=== PATIENT | female | born 1990 | race Caucasian/White ===

== ENCOUNTER 2018-11-28 07:04 | Observation (INO) | payer OTHER ==
[2018-11-28] MEDS ORDERED: Misoprostol 25 MCG (1/4 of 100 MCG) Tab ONE (07:57)
[2018-11-28] MEDS ORDERED: Acetaminophen 325 MG Tab PO PRN ×2 (08:13→21:58)
--- NOTE | 2018-11-28 08:28 | PCM.LDHP ---
L&D History of Present Illness - General Date of Service: 11/28/18 Admit Problem/Dx: Patient Status Order with Admit Dx/Problem 11/28/18 08:13 Patient Status [ADT] Routine Admission Diagnosis/Problem Admission Diagnosis/Problem demise, greater than 22 weeks, antepartum Source of Information: Patient History Limitations: Reports: No Limitations - History of Present Illness Introduction:: Clementine Khoury is a 27 year old at 32 weeks 2 days (L[place]ZARO 01/21/2019) by LMP consistent with 11 week ultrasound who presents for induction of labor in the setting of intrauterine demise diagnosed in the office yesterday, 2018, by ultrasound with no movements noted, no cardiac activity and no breathing. At that time she noted that she had had a decreased amount of activity from the baby but thought that she was feeling movements about once per day. She denies any contractions or cramping but has had some pelvic pressure. She denies any leaking of fluid or vaginal bleeding. Present Illness Comments:: Clementine Khoury is a 27 year old at 32 weeks 2 days (L[place]ZARO 01/21/2019) by LMP consistent with 11 week ultrasound who presents for induction of labor in the setting of intrauterine demise diagnosed on 11/27/2018 in the clinic. She has had routine care with Dr. Adams starting at 11 weeks gestational age. Review of her labs are overall normal with a positive blood type and negative antibody screen. Her hematocrit was 40.7 with hemoglobin of 13.5 and platelets of 326 on 07/02/2018. She is rubella immune. Her RPR, hepatitis B surface antigen and HIV tests were all negative. Her urine culture was negative for urinary tract infection on showed contamination. Her gonorrhea and Chlamydia test were both negative. She declines to have genetic screening. Her 1 hour glucose tolerance test was normal at 92. Her repeat hematocrit was 37.5 with hemoglobin of 12.8 and platelets of 277 on 2018. She was seen in clinic on 11/27/2018 and did not have heart tones, breathing or movements noted at that visit. She was counseled on what this means regarding the and that this is consistent with an intrauterine demise. She desired to discuss her options with her before proceeding with delivery. program host history : FAVD, female , 7 lbs 9 oz., 40 WGA G2: Current , intrauterine demise diagnosed at 32 weeks gestational age. Her has been complicated by: * Intrauterine demise diagnosed at 32 weeks gestational age * Low-lying placenta with last evaluation on 09/05/2018 measuring 1.3 cm from the internal os - Related Data Allergies/Adverse Reactions: Allergies Allergy/AdvReac Type Severity Reaction Status Date / Time No Known Allergies Allergy Verified 11/28/18 08:30 Home Medications: Home Meds Cholecalciferol (Vitamin D3) [Vitamin D] 5,000 units PO DAILY 11/28/18 [History] [place]-3S/DHA/Epa/Fish Oil/D3 [[place]-3 + D Softgel] 1 each PO DAILY 11/28/18 [ History] PNV95/Ferrous Fumarate/FA [ Tablet] 1 each PO DAILY 11/28/18 [History] Past Medical History - Past Surgical History HEENT Surgical History: Reports: Adenoidectomy (1995), Tonsillectomy (1995) Musculoskeletal Surgical History: Reports: Other (See Below) (ankle surgery, 2002) Social & Family History - Tobacco Use Smoking Status *Q: Never Smoker - Tobacco Core Measures Tobacco Use/Smoking Within Last 30 Days: No Smokeless Tobacco Use in Last 30 Days: No - Alcohol Use Alcohol Use History: No - Recreational Drug Use Recreational Drug Use: No Drug Use in Last 12 Months: No - Living Situation & Occupation Living situation: Reports: , with Spouse Occupation: Employed [employer] Review of Systems - Review of Systems: Review Of Systems: See Below General: Denies: Fever, Chills, Malaise, Weakness, Fatigue HEENT: Reports: Glasses. Denies: Rhinitis, Post Nasal Drip, Sinus Congestion, Sore Throat, Visual Changes Pulmonary: Denies: Shortness of Breath, Wheezing, Cough Cardiovascular: Denies: Chest Pain, Palpitations, Dyspnea on Exertion Gastrointestinal: Denies: Abdominal Pain, Constipation, Diarrhea, Nausea, Vomiting Genitourinary: Denies: Dysuria, Frequency, Burning, Pain, Urgency Musculoskeletal: Denies: Back Pain, Joint Pain, Muscle Pain Skin: Denies: Rash, Lesions Psychiatric: Denies: Depression, Anxiety Neurological: Denies: Headache Hematologic/Lymphatic: Denies: Anemia L&D Exam - Exam Exam: See Below - OB Specific Contraction Duration (sec): 0 Contraction Frequency (min): 0 Movement: Not Appreciated Heart Tones: Not [place] Heart Tones per Min: 0 (No heart activity confirmed with bedside U/S ) Estimated Weight: 4 lbs - Lopez Score Lopez Score Cervix Position: Posterior Lopez Score Consistency: Medium Lopez Score Effacement: 0-30% (30%) Lopez Score Dilation: 1-2 cm (1 cm) Lopez Score Infant's Station: -3 Lopez Score Total: 2 - Exam General: Alert, Oriented HEENT: Conjunctiva Clear, EOMI Neck: Supple, Trachea Midline Lungs: Clear to Auscultation, Normal Respiratory Effort Cardiovascular: Regular Rate, Regular Rhythm GI/Abdominal Exam: Soft, No Distention. No: Guarding, Rigid, Rebound Genitourinary: Normal external exam Back Exam: Normal Inspection Extremities: Normal Inspection, No Pedal Edema Skin: Warm, Dry, Intact Psychiatric: Alert, Normal Mood, Other (appropriately distressed affect with situation) - Patient Data Result Diagrams: 11/28/18 08:35 - Problem List (1) 32 weeks gestation of SNOMED Code(s): 7327374 ICD Code: Z3A.32 - 32 WEEKS GESTATION OF Status: Acute Current Visit: Yes (2) Intrauterine at 20 weeks or more of gestation SNOMED Code(s): 569434332, 122698391 ICD Code: O36.4XX0 - MATERNAL CARE FOR INTRAUTERINE , NOT APPLICABLE OR UNSP Status: Acute Current Visit: Yes (3) Low lying placenta nos or without hemorrhage, third trimester SNOMED Code(s): 573421966, 187525659 ICD Code: O44.43 - LOW LYING PLACENTA NOS OR WITHOUT HEMOR, THIRD TRIMESTER Status: Acute Current Visit: Yes Problem List Initiated/Reviewed/Updated: Yes Orders Last 24hrs: Active Orders 24 hr Category Date Time Status Patient Status [ADT] Routine ADT 11/28/18 08:13 Ordered Up ad Elvie [RC] ASDIRECTED Care 11/28/18 08:13 Ordered Uterine Contraction Monitor [RC] PER UNIT ROUTINE Care 11/28/18 08:13 Ordered Vital Signs [RC] PER UNIT ROUTINE Care 11/28/18 08:13 Ordered ANTICARDIOLIPIN AB, IGG/M, QN [REF] Routine Lab 11/28/18 08:13 Ordered BETA-2 GLYCOPROTEIN I AB,G/M [REF] Routine Lab 11/28/18 08:18 Ordered CBC WITH AUTO DIFF [HEME] Routine Lab 11/28/18 08:13 Ordered GLYCOSYLATED HEMOGLOBIN,HGBA1C [CHEM] Routine Lab 11/28/18 08:13 Ordered KLEIHAUER BETKE [BBK] Routine Lab 11/28/18 08:13 Ordered LUPUS ANTICOAGULANT PANEL [REF] Routine Lab 11/28/18 08:13 Ordered PARVOVIRUS B19, HUMAN, IGG/IGM [REF] Routine Lab 11/28/18 08:13 Ordered RAPID PLASMA REAGIN,RPR [CHEM] Routine Lab 11/28/18 08:13 Ordered TSH [CHEM] Routine Lab 11/28/18 08:13 Ordered TYPE AND SCREEN [BBK] Routine Lab 11/28/18 08:13 Ordered Acetaminophen [Tylenol] Med 11/28/18 08:13 Ordered 650 mg PO Q6H PRN Lactated Ringers @ 125 MLS/HR(1,000ml) Med 11/28/18 08:15 Ordered Lactated Ringers [Ringers, Lactated] 1,000 ml IV ASDIRECTED miSOPROStol [Cytotec] Med 11/28/18 12:15 Ordered 25 mcg PO Q4H Resuscitation Status Routine Resus Stat 11/28/18 08:13 Ordered Medication Orders Acetaminophen (Tylenol) 650 mg PO Q6H PRN PRN Reason: Fever Lactated Ringer's (Ringers, Lactated) 1,000 mls @ 125 mls/hr IV ASDIRECTED SHONDA Misoprostol (Cytotec) 25 mcg PO Q4H SHONDA Stop: 11/28/18 16:16 Assessment/Plan Comment:: On initial cervical exam her cervix was 1/30/-4/firm/posterior. A 16 [place] Underwood catheter was able to be manually placed through the cervix and filled with 50 mL of sterile water. Mother tolerated procedure without difficulty. Refer to observation for induction of labor for intrauterine demise Start induction of labor with Cytotec 25 mcg vaginally now and every 4 hours Tocometer monitoring as needed Place IV and have Lactated Ringer's at 125 ml/hr if not tolerating regular diet May have small amounts of regular diet Activity as tolerated May have epidural as desired Plan to transition to Pitocin once patient has made adequate cervical dilation. Artificial rupture of membranes to be performed to assist with labor process when indicated. Anticipate vaginal delivery unless otherwise indicated Nikita Restrepo M.D. 6:31 PM 11/28/2018
[2018-11-28 09:06] LABS: HEMOGLOBIN A1C 5.1 % (4.50-6.20)
[2018-11-28] MEDS: Misoprostol 25 MCG (1/4 of 100 MCG) Tab PO SCH ×2 (12:08→15:35)
[2018-11-28] MEDS ORDERED: Oxytocin/Lactated Ringers 10 UNIT/1,000 ML BAG IV SCH (15:45)
[2018-11-28] MEDS: Lactated Ringers 1,000 ML IV SCH ×2 (16:00→18:54)
[2018-11-28] MEDS ORDERED: ePHEDrine 50 MG/ML SDV IVPUSH PRN (18:15)
[2018-11-28] MEDS ORDERED: diphenhydrAMINE 50 MG/ML SDV IVPUSH PRN (18:15)
[2018-11-28] MEDS ORDERED: Bupivacaine/fentaNYL/NS 100 ML Bag EPIDUR SCH (18:15)
[2018-11-28] MEDS ORDERED: fentaNYL 100 MCG/2 ML SDV EPIDUR PRN (18:15)
[2018-11-28] MEDS ORDERED: Oxytocin 10 Units/1 ML SDV IM ONE (19:39)
--- NOTE | 2018-11-28 19:41 | PCM.SN ---
- Free Text/Narrative Note: Patient has epidural in place. Spontaneous rupture membranes at 1930 hrs. on 11/28. Amnionic fluid is green to brown in color, patient is complete. Continuing to contract with Pitocin augmentation.
--- NOTE | 2018-11-28 20:17 | PCM.DEL ---
L & D Note - General Info Date of Service: 11/28/18 Mother's Due Date: 01/21/19 - Delivery Note Labor: Induced by Oxytocin Delivery Outcome: Stillbirth (Male stillbirth 1857 hrs. 11/28/18 Right sacrum anterior Apgars 0/0 spontaneous no piper forceps required) Delivery Method: Spontaneous Vaginal Delivery-Single Delivery Mode: Spontaneous Presentation: Breech Nuchal Cord: None (multiple twist in the cord, not able to determine if antemortum or postmortum) Prep: Povidone-Iodine (Betadine Anesthesia Type: Epidural Amniotic Fluid Description: Bloody (old blood not bright red) Episiotomy Type: None Laceration: None Placenta: Intact, Spontaneous (1999 hrs 11/28/18 examined closely intact placenta and membranes with only one fenestration from spontaneous rupture, Briana consistent with low lying placenta) Estimated Blood Loss: 150 Provider: Moisés Gill Score 1 min: 0 Score 5 min: 0 - General Info Date of Service: 11/28/18 Functional Status: Reports: Pain Controlled - Review of Systems General: Reports: No Symptoms HEENT: Reports: No Symptoms Pulmonary: Reports: No Symptoms Cardiovascular: Reports: No Symptoms Gastrointestinal: Reports: No Symptoms Genitourinary: Reports: No Symptoms Musculoskeletal: Reports: No Symptoms Skin: Reports: No Symptoms Neurological: Reports: No Symptoms Psychiatric: Reports: No Symptoms - Patient Data Vitals - Most Recent: Last Vital Signs Temp 99.3 F 11/28/18 08:13 Pulse 89 11/28/18 08:13 Resp 18 11/28/18 08:13 BP 128/79 11/28/18 08:13 Pulse Ox Weight - Most Recent: 222 lb 5 oz I&O - Last 24 Hours: Intake & Output 11/28/18 11/28/18 11/28/18 06:59 14:59 22:59 Intake Total 240 240 Balance 240 240 Lab Results Last 24 Hours: Laboratory Results - last 24 hr 11/28/18 11/28/18 11/28/18 Range/Units 08:35 08:35 08:35 WBC 12.06 H (3.98-10.04) K/mm3 RBC 4.68 (3.98-5.22) M/mm3 Hgb 13.8 (11.2-15.7) gm/L Hct 41.3 (34.1-44.9) % MCV 88.2 (79.4-94.8) fl MCH 29.5 (25.6-32.2) pg MCHC 33.4 (32.2-35.5) g/dl RDW Std Deviation 39.5 (36.4-46.3) fL Plt Count 343 (182-369) K/mm3 MPV 10.0 (9.4-12.3) fl Neut % (Auto) 84.7 H (34.0-71.1) % Lymph % (Auto) 10.0 L (19.3-51.7) % [place] % (Auto) 4.4 L (4.7-12.5) % Eos % (Auto) 0.2 L (0.7-5.8) Baso % (Auto) 0.2 (0.1-1.2) % Neut # (Auto) 10.22 H (1.56-6.13) K/mm3 Lymph # (Auto) 1.20 (1.18-3.74) K/mm3 [place] # (Auto) 0.53 H (0.24-0.36) K/mm3 Eos # (Auto) 0.03 L (0.04-0.36) K/mm3 Baso # (Auto) 0.02 (0.01-0.08) K/mm3 Hemoglobin A1c 5.10 (4.50-6.20) % TSH 3rd Generation 1.720 (0.358-3.74) uIU/mL Blood Type Gel Antibody Screen KB Screen KB Cells Counted KB Red Cells Counted KB % Cells Doses of RhIg Required 11/28/18 Range/Units 08:35 WBC (3.98-10.04) K/mm3 RBC (3.98-5.22) M/mm3 Hgb (11.2-15.7) gm/L Hct (34.1-44.9) % MCV (79.4-94.8) fl MCH (25.6-32.2) pg MCHC (32.2-35.5) g/dl RDW Std Deviation (36.4-46.3) fL Plt Count (182-369) K/mm3 MPV (9.4-12.3) fl Neut % (Auto) (34.0-71.1) % Lymph % (Auto) (19.3-51.7) % [place] % (Auto) (4.7-12.5) % Eos % (Auto) (0.7-5.8) Baso % (Auto) (0.1-1.2) % Neut # (Auto) (1.56-6.13) K/mm3 Lymph # (Auto) (1.18-3.74) K/mm3 [place] # (Auto) (0.24-0.36) K/mm3 Eos # (Auto) (0.04-0.36) K/mm3 Baso # (Auto) (0.01-0.08) K/mm3 Hemoglobin A1c (4.50-6.20) % TSH 3rd Generation (0.358-3.74) uIU/mL Blood Type A POSITIVE Gel Antibody Screen Negative KB Screen Cancelled KB Cells Counted Cancelled KB Red Cells Counted Cancelled KB % Cells Cancelled Doses of RhIg Required Cancelled Med Orders - Current: Current Medications Acetaminophen (Tylenol) 650 mg PO Q6H PRN PRN Reason: Fever Diphenhydramine HCl (Benadryl) 25 mg IVPUSH Q6H PRN PRN Reason: Itching Ephedrine Sulfate (Ephedrine Sulfate) 5 mg IVPUSH ASDIRECTED PRN PRN Reason: HYPOTENTSION Fentanyl (Sublimaze) 100 mcg EPIDUR Q3H PRN PRN Reason: Pain Last Admin: 11/28/18 18:42 Dose: 100 mcg Fentanyl/Bupivacaine HCl (Fentanyl/Bupivacaine/Ns 2 Mcg-0.125% 100 Ml) 100 ml EPIDUR ASDIRECTED SHONDA Last Admin: 11/28/18 18:43 Dose: 100 ml Lactated Ringer's (Ringers, Lactated) 1,000 mls @ 125 mls/hr IV ASDIRECTED SHONDA Last Admin: 11/28/18 18:54 Dose: 125 mls/hr Oxytocin/Lactated Ringer's (Pitocin In Lr 10 Units/1,000 Ml) 10 unit in 1,000 mls @ 12 mls/hr IV TITRATE SHONDA; Protocol Last Titration: 11/28/18 17:19 Dose: 5 munits/min, 30 mls/hr Discontinued Medications Misoprostol (Cytotec) Confirm Administered Dose 25 mcg .ROUTE .STK-MED ONE Stop: 11/28/18 07:58 Last Admin: 11/28/18 08:05 Dose: 25 mcg Misoprostol (Cytotec) 25 mcg PO Q4H SHONDA Stop: 11/28/18 16:01 Last Admin: 11/28/18 15:35 Dose: Not Given Oxytocin (Pitocin) 10 unit IM ONETIME ONE Stop: 11/28/18 19:40 - Exam General: Alert, Oriented HEENT: Pupils Equal, Mucous Membr. Moist/[place] Neck: Supple (Female) Exam: Normal External Exam Extremities: Normal Inspection, Normal Range of Motion, Non-Tender, No Pedal Edema, Normal Capillary Refill Skin: Warm, Dry, Intact Psy/Mental Status: Alert, Normal Affect, Normal Mood - Problem List & Annotations (1) 32 weeks gestation of SNOMED Code(s): 9425321 Code(s): Z3A.32 - 32 WEEKS GESTATION OF Status: Acute Current Visit: Yes (2) Intrauterine at 20 weeks or more of gestation SNOMED Code(s): 864528859, 775737610 Code(s): O36.4XX0 - MATERNAL CARE FOR INTRAUTERINE , NOT APPLICABLE OR UNSP Status: Acute Current Visit: Yes (3) Low lying placenta nos or without hemorrhage, third trimester SNOMED Code(s): 496854512, 282453357 Code(s): O44.43 - LOW LYING PLACENTA NOS OR WITHOUT HEMOR, THIRD TRIMESTER Status: Acute Current Visit: Yes (4) Breech delivery SNOMED Code(s): 268910672, 048948086 Code(s): O32.1XX0 - MATERNAL CARE FOR BREECH PRESENTATION, UNSP Status: Acute Current Visit: Yes - Problem List Review Problem List Initiated/Reviewed/Updated: No - Plan Plan:: On initial cervical exam her cervix was 30/-4/firm/posterior. A 16 [place] Underwood catheter was able to be manually placed through the cervix and filled with 50 mL of sterile water. Mother tolerated procedure without difficulty. Refer to observation for induction of labor for intrauterine demise Start induction of labor with Cytotec 25 mcg vaginally now and every 4 hours Tocometer monitoring as needed Place IV and have Lactated Ringer's at 125 ml/hr if not tolerating regular diet May have small amounts of regular diet Activity as tolerated May have epidural as desired Plan to transition to Pitocin once patient has made adequate cervical dilation. Artificial rupture of membranes to be performed to assist with labor process when indicated. Anticipate vaginal delivery unless otherwise indicated Nikita Restrepo M.D. 6:31 PM 11/28/2018
[2018-11-28] MEDS ORDERED: Witch Hazel Medicated Pads 100/Jar TOP PRN (21:58)
[2018-11-28] MEDS ORDERED: Docusate Sodium 100 MG Cap PO PRN (21:58)
[2018-11-28] MEDS ORDERED: Ibuprofen 600 MG Tab PO PRN (21:58)
[2018-11-28] MEDS ORDERED: Bupivacaine 0.25% 10 ML SDV ONE (22:00)
--- NOTE | 2018-11-29 09:54 | PCM.SN ---
- Free Text/Narrative Note: Post Progress Note PPD # 1 Subjective: Doing well overall but continued to have grief reaction to demise. Ambulating without difficulty. Lochia minimal. Voiding without difficulty. Tolerating regular diet without nausea or vomiting. Pain is minimal and able to be controlled with oral medications. Denies any milk production at this time. Objective: Vitals: Vital Signs - 24 hr 11/29/18 04:00 Temperature [ 36.8 C Temporal] Pulse, 72 Peripheral [ Right] Respiratory 16 Rate Blood Pressure 113/77 [Right Arm] Physical Exam General: Alert and oriented, no acute distress Lungs: Clear to auscultation bilaterally Heart: Regular rate and rhythm Abdomen: Soft, minimal appropriate tenderness, non-distended, fundus midline, nontender, and 2 finger breaths below the umbilicus Extremities: Trace edema in bilateral lower extremities to mid shins Laboratory Tests 11/28/18 11/28/18 11/28/18 Range/Units 08:35 08:35 08:35 WBC 12.06 H (3.98-10.04) K/mm3 RBC 4.68 (3.98-5.22) M/mm3 Hgb 13.8 (11.2-15.7) gm/L Hct 41.3 (34.1-44.9) % MCV 88.2 (79.4-94.8) fl MCH 29.5 (25.6-32.2) pg MCHC 33.4 (32.2-35.5) g/dl RDW Std Deviation 39.5 (36.4-46.3) fL Plt Count 343 (182-369) K/mm3 MPV 10.0 (9.4-12.3) fl Neut % (Auto) 84.7 H (34.0-71.1) % Lymph % (Auto) 10.0 L (19.3-51.7) % [place] % (Auto) 4.4 L (4.7-12.5) % Eos % (Auto) 0.2 L (0.7-5.8) Baso % (Auto) 0.2 (0.1-1.2) % Neut # (Auto) 10.22 H (1.56-6.13) K/mm3 Lymph # (Auto) 1.20 (1.18-3.74) K/mm3 [place] # (Auto) 0.53 H (0.24-0.36) K/mm3 Eos # (Auto) 0.03 L (0.04-0.36) K/mm3 Baso # (Auto) 0.02 (0.01-0.08) K/mm3 Volume Blood mL RBC % (<1.0) % Maternal Rh Lupus Anticoagulant Lupus Anticoag aPTT (24-34) sec Hemoglobin A1c 5.10 (4.50-6.20) % TSH 3rd Generation 1.720 (0.358-3.74) uIU/mL RPR (NONREACTIVE) Blood Type Gel Antibody Screen KB Screen KB Cells Counted KB Red Cells Counted KB % Cells Doses of RhIg Required 11/28/18 11/28/18 11/28/18 Range/Units 08:35 08:35 08:35 WBC (3.98-10.04) K/mm3 RBC (3.98-5.22) M/mm3 Hgb (11.2-15.7) gm/L Hct (34.1-44.9) % MCV (79.4-94.8) fl MCH (25.6-32.2) pg MCHC (32.2-35.5) g/dl RDW Std Deviation (36.4-46.3) fL Plt Count (182-369) K/mm3 MPV (9.4-12.3) fl Neut % (Auto) (34.0-71.1) % Lymph % (Auto) (19.3-51.7) % [place] % (Auto) (4.7-12.5) % Eos % (Auto) (0.7-5.8) Baso % (Auto) (0.1-1.2) % Neut # (Auto) (1.56-6.13) K/mm3 Lymph # (Auto) (1.18-3.74) K/mm3 [place] # (Auto) (0.24-0.36) K/mm3 Eos # (Auto) (0.04-0.36) K/mm3 Baso # (Auto) (0.01-0.08) K/mm3 Volume Blood mL RBC % (<1.0) % Maternal Rh Lupus Anticoagulant Lupus Anticoag aPTT 29 (24-34) sec Hemoglobin A1c (4.50-6.20) % TSH 3rd Generation (0.358-3.74) uIU/mL RPR Non-reactive (NONREACTIVE) Blood Type A POSITIVE Gel Antibody Screen Negative KB Screen Cancelled KB Cells Counted Cancelled KB Red Cells Counted Cancelled KB % Cells Cancelled Doses of RhIg Required Cancelled 11/28/18 11/29/18 Range/Units 08:35 06:13 WBC 14.48 H (3.98-10.04) K/mm3 RBC 4.26 (3.98-5.22) M/mm3 Hgb 12.6 (11.2-15.7) gm/L Hct 38.0 (34.1-44.9) % MCV 89.2 (79.4-94.8) fl MCH 29.6 (25.6-32.2) pg MCHC 33.2 (32.2-35.5) g/dl RDW Std Deviation 39.9 (36.4-46.3) fL Plt Count 303 (182-369) K/mm3 MPV 10.0 (9.4-12.3) fl Neut % (Auto) 77.9 H (34.0-71.1) % Lymph % (Auto) 13.1 L (19.3-51.7) % [place] % (Auto) 7.4 (4.7-12.5) % Eos % (Auto) 0.8 (0.7-5.8) Baso % (Auto) 0.2 (0.1-1.2) % Neut # (Auto) 11.29 H (1.56-6.13) K/mm3 Lymph # (Auto) 1.89 (1.18-3.74) K/mm3 [place] # (Auto) 1.07 H (0.24-0.36) K/mm3 Eos # (Auto) 0.12 (0.04-0.36) K/mm3 Baso # (Auto) 0.03 (0.01-0.08) K/mm3 Volume Blood 0 mL RBC % 0.00 (<1.0) % Maternal Rh Positive Lupus Anticoagulant Lupus Anticoag aPTT (24-34) sec Hemoglobin A1c (4.50-6.20) % TSH 3rd Generation (0.358-3.74) uIU/mL RPR (NONREACTIVE) Blood Type Gel Antibody Screen KB Screen KB Cells Counted KB Red Cells Counted KB % Cells Doses of RhIg Required ASSESSMENT: 27-year-old female s/p breech vaginal delivery of demise PPD #1, complicated by demise that was diagnosed at 32 weeks gestational age and low lying placenta PLAN: Doing well overall. Reports continued grief and crying episodes given situation with demise. Patient has not had production of any milk at this time. Patient given recommendations to reduce milk production. Lochia minimal. Continue to monitor for appropriate lochia. Continue routine care Discharge home today Nikita Restrepo MD 11:59 AM 11/29/2018
--- NOTE | 2018-11-29 09:54 | PCM.DCSUM1 ---
Discharge Summary - Hospital Course Free Text/Narrative:: - General Info Date of Service: 11/28/18 Mother's Due Date: 01/21/19 - Delivery Note Labor: Induced by Oxytocin Delivery Outcome: Stillbirth (Male stillbirth 7 hrs. 11/28/18 Right sacrum anterior Apgars 0/0 spontaneous no piper forceps required) Delivery Method: Spontaneous Vaginal Delivery-Single Infant Delivery Mode: Spontaneous Presentation: Breech Nuchal Cord: None (multiple twist in the cord, not able to determine if antemortum or postmortum) Prep: Povidone-Iodine (Betadine Anesthesia Type: Epidural Amniotic Fluid Description: Bloody (old blood not bright red) Episiotomy Type: None Laceration: None Placenta: Intact, Spontaneous (199911/28/18 examined closely intact placenta and membranes with only one fenestration from spontaneous rupture, Warren consistent with low lying placenta) Estimated Blood Loss: 150 Provider: Moisés Gill Score 1 min: 0 Score 5 min: 0 HPI Initial Comments: - General Info Date of Service: 11/28/18 Mother's Due Date: 01/21/19 - Delivery Note Labor: Induced by Oxytocin Delivery Outcome: Stillbirth (Male stillbirth 1856 hrs. 11/28/18 Right sacrum anterior Apgars 0/0 spontaneous no piper forceps required) Delivery Method: Spontaneous Vaginal Delivery-Single Delivery Mode: Spontaneous Presentation: Breech Nuchal Cord: None (multiple twist in the cord, not able to determine if antemortum or postmortum) Prep: Povidone-Iodine (Betadine Anesthesia Type: Epidural Amniotic Fluid Description: Bloody (old blood not bright red) Episiotomy Type: None Laceration: None Placenta: Intact, Spontaneous (199911/28/18 examined closely intact placenta and membranes with only one fenestration from spontaneous rupture, Warren consistent with low lying placenta) Estimated Blood Loss: 150 Provider: Moisés Gill Score 1 min: 0 Score 5 min: 0 Brief History: - General Info. Date of Service: 11/28/18. Mother's Due Date: 01/21/19. - Delivery Note. Labor: Induced by Oxytocin. Delivery Outcome: Stillbirth (Male stillbirth 7 hrs. 11/28/18 Right sacrum anterior Apgars 0/0 spontaneous no piper forceps required). Delivery Method: Spontaneous Vaginal Delivery-Single. Infant Delivery Mode: Spontaneous. Presentation: Breech. Nuchal Cord: None (multiple twist in the cord, not able to determine if antemortum or postmortum). Prep: Povidone-Iodine (Betadine. Anesthesia Type: Epidural. Amniotic Fluid Description: Bloody (old blood not bright red). Episiotomy Type: None. Laceration: None. Placenta: Intact, Spontaneous (1999 hrs 11/28/18 examined closely intact placenta and membranes with only one fenestration from spontaneous rupture, Warren consistent with low lying placenta). Estimated Blood Loss: 150. Provider: Moisés Gill. Score 1 min: 0. Score 5 min: 0 Diagnosis: Stroke: No - Discharge Data Discharge Date: 11/29/18 Discharge Disposition: Home, Self-Care 01 Condition: Good - Discharge Diagnosis/Problem(s) (1) 32 weeks gestation of SNOMED Code(s): 5013431 ICD Code: Z3A.32 - 32 WEEKS GESTATION OF Status: Acute (2) Intrauterine at 20 weeks or more of gestation SNOMED Code(s): 422136821, 560468346 ICD Code: O36.4XX0 - MATERNAL CARE FOR INTRAUTERINE , NOT APPLICABLE OR UNSP Status: Acute (3) Low lying placenta nos or without hemorrhage, third trimester SNOMED Code(s): 622983543, 199200060 ICD Code: O44.43 - LOW LYING PLACENTA NOS OR WITHOUT HEMOR, THIRD TRIMESTER Status: Acute - Patient Summary/Data Complications: Stillborn infant diagnosed prior to induction Consults: None Hospital Course: Clementine Khoury was admitted for induction of labor in the setting of intrauterine demise diagnosed at 32 weeks gestational age. On admission her cervix was dilated to 1 cm. she had a 16 Samo[place] Underwood bulb placed with 50 mL of sterile water. Her initial mechanical dilation of the cervix. She was started on Cytotec 25 mcg for induction of labor and received a total of 2 doses. After the Underwood bulb came out at approximately 3 PM she was started on pitocin for augmentation of her labor. She was given an epidural for anesthesia. She had spontaneous rupture of membranes with bloody fluid. She progressed to complete and began pushing. On 11/28/2018 she had a breech vaginal delivery of a stillborn male infant at 1857. Apgars of 0 and 0. Weight of 1120 g (2 pounds 7.5 ounces). Her course was uneventful. Her pain was well controlled and she had minimal lochia. She was ambulating, tolerating a regular diet and voiding normally. She was afebrile and her hematocrit was 38.0 on day #1. She desired to be discharged home on the morning of PPD #1. Her blood type was A+. All of the labs available at time of discharge were within normal limits and did not give any additional explanation for the cause of the stillbirth. Patient was appropriately distressed and undergoing grief reaction given situation with stillborn infant. - Patient Instructions Diet: Regular Diet as Tolerated Activity: Apply Ice, As Tolerated Activity, Other: Nothing in the vagina for 6 weeks Driving: May Drive Today Showering/Bathing: May Shower Notify Provider of: Fever, Increased Pain, Swelling and Redness, Drainage, Nausea and/or Vomiting Other/Special Instructions: Please contact your physician's office if you have heavy vaginal bleeding enough to soak a pad in less than an hour for several hours. Monitor for any signs of an infection in the breasts with severe pain or redness of the breast. I recommend the use of a tight fitting sports bra or Hernán bandage wrap to reduce milk production. You may also use cold packs to help with pain or engorgement. - Discharge Plan *PRESCRIPTION DRUG MONITORING PROGRAM REVIEWED*: Not Applicable *COPY OF PRESCRIPTION DRUG MONITORING REPORT IN PATIENT JR: Not Applicable Home Medications: Home Meds Cholecalciferol (Vitamin D3) [Vitamin D] 5,000 units PO DAILY 11/28/18 [History] Acetaminophen [Tylenol] 650 mg PO Q6H PRN tablet 11/29/18 [Rx] Docusate Sodium [Colace] 100 mg PO BID PRN cap 11/29/18 [Rx] Ibuprofen [Motrin] 600 mg PO Q6H PRN tablet 11/29/18 [Rx] Witellen Sumaya [Tucks] 1 pad TOP ASDIRECTED PRN pad 11/29/18 [Rx] Patient Handouts: Vaginal Delivery, Care After, Vaginal Delivery, Loss, Care After Referrals: Horacio Adams MD [Physician] - (Follow-up in 1-2 weeks or earlier as needed for visit.) - Discharge Summary/Plan Comment DC Time >30 min.: No - Patient Data Vitals - Most Recent: Last Vital Signs Temp 36.8 C 11/29/18 04:00 Pulse 72 11/29/18 04:00 Resp 16 11/29/18 04:00 BP 113/77 11/29/18 04:00 Pulse Ox Weight - Most Recent: 100.839 kg I&O - Last 24 hours: Intake & Output 11/28/18 11/29/18 11/29/18 22:59 06:59 14:59 Intake Total 240 Balance 240 Lab Results - Last 24 hrs: Laboratory Results - last 24 hr 11/28/18 11/28/18 11/29/18 Range/Units 08:35 08:35 06:13 WBC 14.48 H (3.98-10.04) K/mm3 RBC 4.26 (3.98-5.22) M/mm3 Hgb 12.6 (11.2-15.7) gm/L Hct 38.0 (34.1-44.9) % MCV 89.2 (79.4-94.8) fl MCH 29.6 (25.6-32.2) pg MCHC 33.2 (32.2-35.5) g/dl RDW Std Deviation 39.9 (36.4-46.3) fL Plt Count 303 (182-369) K/mm3 MPV 10.0 (9.4-12.3) fl Neut % (Auto) 77.9 H (34.0-71.1) % Lymph % (Auto) 13.1 L (19.3-51.7) % Haskell % (Auto) 7.4 (4.7-12.5) % Eos % (Auto) 0.8 (0.7-5.8) Baso % (Auto) 0.2 (0.1-1.2) % Neut # (Auto) 11.29 H (1.56-6.13) K/mm3 Lymph # (Auto) 1.89 (1.18-3.74) K/mm3 Haskell # (Auto) 1.07 H (0.24-0.36) K/mm3 Eos # (Auto) 0.12 (0.04-0.36) K/mm3 Baso # (Auto) 0.03 (0.01-0.08) K/mm3 RPR Non-reactive (NONREACTIVE) Blood Type A POSITIVE Gel Antibody Screen Negative KB Screen Cancelled KB Cells Counted Cancelled KB Red Cells Counted Cancelled KB % Cells Cancelled Doses of RhIg Required Cancelled Med Orders - Current: Current Medications Acetaminophen (Tylenol) 650 mg PO Q4H PRN PRN Reason: mild pain or fever Docusate Sodium (Colace) 100 mg PO BID PRN PRN Reason: Constipation Ibuprofen (Motrin) 600 mg PO Q4H PRN PRN Reason: Mild pain or fever Last Admin: 11/29/18 04:06 Dose: 600 mg Witch Sumaya (Tucks) 1 pad TOP ASDIRECTED PRN PRN Reason: Hemorrhoid pain Discontinued Medications Acetaminophen (Tylenol) 650 mg PO Q6H PRN PRN Reason: Fever Diphenhydramine HCl (Benadryl) 25 mg IVPUSH Q6H PRN PRN Reason: Itching Ephedrine Sulfate (Ephedrine Sulfate) 5 mg IVPUSH ASDIRECTED PRN PRN Reason: HYPOTENTSION Fentanyl (Sublimaze) 100 mcg EPIDUR Q3H PRN PRN Reason: Pain Last Admin: 11/28/18 18:42 Dose: 100 mcg Fentanyl/Bupivacaine HCl (Fentanyl/Bupivacaine/Ns 2 Mcg-0.125% 100 Ml) 100 ml EPIDUR ASDIRECTED SHONDA Last Admin: 11/28/18 18:43 Dose: 100 ml Lactated Ringer's (Ringers, Lactated) 1,000 mls @ 125 mls/hr IV ASDIRECTED SHONDA Last Admin: 11/28/18 18:54 Dose: 125 mls/hr Oxytocin/Lactated Ringer's (Pitocin In Lr 10 Units/1,000 Ml) 10 unit in 1,000 mls @ 12 mls/hr IV TITRATE SHONDA; Protocol Last Titration: 11/28/18 17:19 Dose: 5 munits/min, 30 mls/hr Misoprostol (Cytotec) Confirm Administered Dose 25 mcg .ROUTE .STK-MED ONE Stop: 11/28/18 07:58 Last Admin: 11/28/18 08:05 Dose: 25 mcg Misoprostol (Cytotec) 25 mcg PO Q4H SHONDA Stop: 11/28/18 16:01 Last Admin: 11/28/18 15:35 Dose: Not Given Oxytocin (Pitocin) 10 unit IM ONETIME ONE Stop: 11/28/18 19:40 Last Admin: 11/28/18 20:00 Dose: 10 unit
--- NOTE | 2018-11-30 16:50 | PCM48HPAN ---
Post Anesthesia Note - EVALUATION WITHIN 48HRS OF ANESTHETIC Vital Signs in Normal Range: Yes Patient Participated in Evaluation: No (Patient discharged home. No complciations noted. ) Respiratory Function Stable: Yes Airway Patent: Yes Cardiovascular Function Stable: Yes Hydration Status Stable: Yes Pain Control Satisfactory: Yes Nausea and Vomiting Control Satisfactory: Yes Mental Status Recovered: Yes
== END 2018-11-29 10:20 | disposition home or self-care (01) ==
LOC: JD.OB 07:04
PROVIDERS: ADMIT Obstetrics & Gynecology; ATTEND Obstetrics & Gynecology
DX: O36.4XX0 Maternal care for intrauterine death, not applicable or unspecified (principal); O44.43 Low lying placenta NOS or without hemorrhage, third trimester; Z3A.32 32 weeks gestation of pregnancy; Z37.1 Single stillbirth
CPT/HCPCS: 36415; 59409; 83036; 84443; 85025; 85460; 85613; 85730; 86146; 86147; 86592; 86747; 86850; 86900; 86901; A9270; J2590; J3010; J3490; J7120; 01961; 96361; 96365; G0378

== ENCOUNTER 2019-12-25 06:01 | Inpatient (IN) | payer OTHER ==
[~2019-12-25 06:01] MED LIST: Bupivacaine 0.25% 10 ML SDV ONE
[2019-12-25] MEDS ORDERED: Sodium Chloride 0.9% 10 ML Syringe FLUSH PRN (07:18)
[2019-12-25] MEDS ORDERED: Lidocaine 1% 50 ML MDV INJECT PRN (07:18)
[2019-12-25] MEDS ORDERED: Oxytocin/Lactated Ringers 10 UNIT/1,000 ML BAG IV SCH ×2 (07:30)
[2019-12-25] MEDS ORDERED: Lactated Ringers 1,000 ML IV SCH (07:30)
[2019-12-25] MEDS ORDERED: Bupivacaine/fentaNYL/NS 100 ML Bag EPIDUR PRN (15:18)
[2019-12-25] MEDS ORDERED: diphenhydrAMINE 50 MG/ML SDV IVPUSH PRN (15:18)
[2019-12-25] MEDS ORDERED: ePHEDrine 50 MG/ML SDV IVPUSH PRN (15:18)
[2019-12-25] MEDS ORDERED: fentaNYL 100 MCG/2 ML SDV EPIDUR PRN (15:18)
--- NOTE | 2019-12-25 15:56 | PCM.PREANE ---
Preanesthetic Assessment - Procedure Proposed Procedure: Labor Epidural - Anesthesia/Transfusion/Family Hx Anesthesia History: Prior Anesthesia Without Reaction Transfusion History: No Prior Transfusion(s) - Review of Systems General: No Symptoms Pulmonary: No Symptoms Cardiovascular: No Symptoms Gastrointestinal: No Symptoms Neurological: No Symptoms Other: Reports: None - Physical Assessment Vital Signs: Last Vital Signs Temp 36.7 C 12/25/19 07:18 Pulse 81 12/25/19 10:01 Resp 18 12/25/19 07:18 BP 113/70 12/25/19 10:01 Pulse Ox Height: 1.65 m Weight: 108.862 kg ASA Class: 2 Mental Status: Alert & Oriented x3 Airway Class: Mallampati = 1 Dentition: Reports: Normal Dentition Thyro-Mental Finger Breadths: 3 Mouth Opening Finger Breadths: 3 ROM/Head Extension: Full Lungs: Clear to Auscultation, Normal Respiratory Effort Cardiovascular: Regular Rate, Regular Rhythm - Lab Values: Laboratory Last Values WBC 10.31 K/mm3 (3.98-10.04) H 12/25/19 07:32 RBC 4.24 M/mm3 (3.98-5.22) 12/25/19 07:32 Hgb 12.5 gm/dl (11.2-15.7) 12/25/19 07:32 Hct 38.5 % (34.1-44.9) 12/25/19 07:32 MCV 90.8 fl (79.4-94.8) 12/25/19 07:32 MCH 29.5 pg (25.6-32.2) 12/25/19 07:32 MCHC 32.5 g/dl (32.2-35.5) 12/25/19 07:32 RDW Std Deviation 44.0 fL (36.4-46.3) 12/25/19 07:32 Plt Count 275 K/mm3 (182-369) 12/25/19 07:32 MPV 10.7 fl (9.4-12.3) 12/25/19 07:32 - Allergies Allergies/Adverse Reactions: Allergies Allergy/AdvReac Type Severity Reaction Status Date / Time No Known Allergies Allergy Verified 11/28/18 08:30 - Acknowledgements Anesthesia Type Planned: Epidural Pt an Appropriate Candidate for the Planned Anesthesia: Yes Alternatives and Risks of Anesthesia Discussed w Pt/Guardian: Yes Pt/Guardian Understands and Agrees with Anesthesia Plan: Yes PreAnesthesia Questionnaire - Past Health History Medical/Surgical History: Denies Medical/Surgical History HEENT History: Reports: None Cardiovascular History: Reports: High Cholesterol S[employer] History: Reports: , Other (See Below) Other OB/BYN History: demise at 32 weeks with 2nd , currently with [facility] 01/01/20 - Past Surgical History HEENT Surgical History: Reports: Adenoidectomy, Tonsillectomy Cardiovascular Surgical History: Reports: Varicose Other Cardiovascular Surgeries/Procedures: left leg medial Musculoskeletal Surgical History: Reports: Other (See Below) Other Musculoskeletal Surgeries/Procedures:: ankle surgery 2002 - SUBSTANCE USE Smoking Status *Q: Never Smoker Second Hand Smoke Exposure: No Recreational Drug Use History: No - HOME MEDS Home Medications: Home Meds Cholecalciferol (Vitamin D3) [Vitamin D3] 2,000 unit PO DAILY 12/25/19 [History] Pnv No.95/Ferrous Fum/Folic AC [ Vitamin Tablet] 1 each PO DAILY [History] - CURRENT (IN HOUSE) MEDS Current Meds: Current Medications Diphenhydramine HCl (Benadryl) 25 mg IVPUSH Q6H PRN PRN Reason: pruritis Ephedrine Sulfate (Ephedrine Sulfate) 5 mg IVPUSH ASDIRECTED PRN PRN Reason: Hypotension Fentanyl (Sublimaze) 100 mcg EPIDUR Q3H PRN PRN Reason: Pain Last Admin: 12/25/19 15:33 Dose: 100 mcg Fentanyl/Bupivacaine HCl (Fentanyl/Bupivacaine/Ns 2 Mcg-0.125% 100 Ml) 100 ml EPIDUR ASDIRECTED PRN PRN Reason: Pain Last Admin: 12/25/19 15:33 Dose: 100 ml Lactated Ringer's (Ringers, Lactated) 1,000 mls @ 100 mls/hr IV ASDIRECTED SHONDA Last Infusion: 12/25/19 15:36 Dose: 999 mls/hr Oxytocin/Lactated Ringer's (Pitocin In Lr 10 Units/1,000 Ml) 10 unit in 1,000 mls @ 12 mls/hr IV TITRATE SHONDA; Protocol Last Titration: 12/25/19 15:36 Dose: 0 munits/min, 0 mls/hr Oxytocin/Lactated Ringer's (Pitocin In Lr 10 Units/1,000 Ml) 10 unit in 1,000 mls @ 500 mls/hr IV .CONTINUOUS HSONDA Lidocaine HCl (Xylocaine 1%) 50 ml INJECT ONETIME PRN PRN Reason: Breakthrough Pain Sodium Chloride (Saline Flush) 10 ml FLUSH ASDIRECTED PRN PRN Reason: Keep Vein Open
--- NOTE | 2019-12-25 16:43 | PCM.SN ---
- Free Text/Narrative Note: Clementine is a 29-year-old multigravida white female who was admitted this a.m. for induction of labor. She underwent artificial rupture membranes and was later augmented somewhat with Pitocin. She progressed rapidly to complete cervical dilation. She had an epidural for labor analgesia. At 1617 hrs. she delivered a viable, pool, male infant with Apgars of 8 and 9, a length of 21.0 inches, a weight of 4130 g per menses 9 pounds 1.7 ounces) she delivered in a direct occiput anterior position. The baby was completely delivered and placed on mom's abdomen. Umbilical cord was allowed to pulsate for approximately 2 minutes and then was clamped 2 and cut by the baby's father Maximilian. Cord blood was obtained. The umbilical cord had 3 vessels. The placenta delivered in a Warren's dictation, appeared intact and complete and was discarded per patient desire. The baby was dried and nose mouth were bulb suctioned. Pitocin was increased 500 mL per hour. The IV however was nonfunctional and was discontinued. Attention was paid to the contraction the uterus and to monitor bleeding which was minimal. Patient had a's small second-degree laceration which was repaired with 2 figure- of-eight sutures of 3-0 Monocryl. Estimated blood loss was 200 mL. Condition: Good.
[2019-12-25] MEDS ORDERED: Witch Hazel Medicated Pads 40/Jar TOP PRN (17:23)
[2019-12-25] MEDS ORDERED: Docusate Sodium 100 MG Cap PO PRN (17:23)
[2019-12-25] MEDS ORDERED: Acetaminophen 325 MG Tab PO PRN (17:23)
[2019-12-25] MEDS ORDERED: Benzocaine/Menthol 20%-0.5% Spray 56 GM Canister TOP PRN (17:23)
[2019-12-26] MEDS: Ibuprofen 600 MG Tab PO PRN ×3 (00:25→18:17)
--- NOTE | 2019-12-26 06:18 | PCM.LDHP ---
L&D History of Present Illness - General Date of Service: 12/25/19 Admit Problem/Dx: Admission Diagnosis/Problem Admission Diagnosis/Problem 12/26/19 06:10 Clementine is a 29-year-old 3 para 1011 white female who was admitted on at 39-0/7 weeks gestational age with an LÁZARO of 01/01/2020 for elective induction of labor. Source of Information: Patient History Limitations: Reports: No Limitations - History of Present Illness Introduction:: Clementine is a 29-year-old 3 para 1011 white female who was admitted on at 39-0/7 weeks gestational age with an LÁZARO of 01/01/2020 for elective induction of labor.She has a history of stillborn and delivered her last at approximately 32-7 weeks gestational age. Cause of the stillborn was undetermined. Patient is been evaluated intensively during the course of this course with testing on a weekly basis. He has had a relatively unremarkable course. He is a centering patient. MICROBIOLOGY MANAGER history: Patient is 3 para 1011. LÁZARO is 01/01/2020 by LMP started 03/27/2019 end confirmed by multiple ultrasounds. Prior with demise at 32-2/7 weeks with weight of 2 lbs. 7 oz. Baby was male infant. First was female infant delivered at full term at 40 weeks gestational age vaginally. Baby weighed 7 lbs. 9 oz. was forceps delivery. course patient received T Deppe on 10/21/2019. She is rubella immune. She had flu vaccination on 08/05/2019. She plans to breast-feed. course unremarkable with her first visit on 06/19/2019. Her current weight is 20/40 pounds. Vital signs and stable throughout . She had trace edema noted. Fundal height growth was appropriate. Patient continues to take vitamins and vitamin D supplementation. She has used antihistamines for seasonal allergies Laboratory testing: Blood type is A+ with negative amylase screen. hematocrit was 41.8% with hemoglobin of 14.0. Platelets are 367,000. CBC on showed a hemoglobin of 13.0. Platelets were 322,000 at that time. She is rubella immune with nonreactive RPR. Urine culture was unremarkable. She is negative for hepatitis B surface antigen and HIV assays. One-hour GTT was normal at 118. Physical profiles done weekly after 30-32 weeks' were 8 out of 8 continuously. She is negative for group B strep. Allergies: Seasonal allergiesno drug allergies noted. Medications: 1. vitamins 1 daily 2. Vitamin D 5000 international units daily. 3. Occasional antihistamine therapy. Past medical history: 1. Normal spontaneous vaginal deliveries first child 2. Vaginal delivery of stillborn. Past surgical history: 1. T&A 1995 2. Ankle surgery 2002. Social history: Patient . is Maximilian Khoury. She resides in [place], [place]. She does not use any significant loss of alcohol, drugs or tobacco. Family history: Mother has history of hypercholesterolemia, she also has type 2 diabetes and is hypothyroid on meds. Father has history of morbid obesity and high blood pressure. Also suffers from gout. 3 brothers are healthy. One half- sister has high blood pressure history and high cholesterol. Paternal grandfather is secondary to pulmonary problems. He was a smoker and mine worker. Maternal grandmother is alive but with history of thyroid dysfunction and colon cancer. Paternal grandmother is secondary to osteoporosis. Paternal grandfather secondary to old age. Paternal uncle secondary to type 1 diabetes. Review of systems: In general patient has no complaints. Baby has been active. Skin: Negative Lungs: No infectious symptoms or shortness of breath Cardiovascular: No chest pain or exercise intolerance Breasts: Changes associated with .. GI: Negative : changes. Musculoskeletal: Negative Neurological: Negative In general the patient is well-developed, well-nourished, pleasant female of stated age in no acute distress. Last evaluation clinic her height is 5 feet 5 inches. Weight is 240 pounds at first visit. 241 pounds at the end of the . Blood pressures 124/74. heart rate is 148. Fundal height was 40. Skin is warm dry without lesions. HEENT, neck and back within normal limits. Lungs are clear with good breath sounds in all lung smith. Breast exam is deferred at this time having been done at first medical visit and found to be normal. Cardiovascular exam shows regular and rhythm without murmurs. Abdomen is flat, soft, nontender without masses or organomegaly. Positive bowel sounds are noted. No inguinal lymphadenopathy or hernias are noted. Genital per speculum bimanual shows normal external genitalia, BUS, pubic hair pattern. There is normal support, secretions and estrogenization vagina. Uterus is small, anterior, freely mobile, without parametrial induration or adnexal abnormalities. Extremities and neurological exam are grossly within normal limits. Pain Score: 0 - Related Data Allergies/Adverse Reactions: Allergies Allergy/AdvReac Type Severity Reaction Status Date / Time No Known Allergies Allergy Verified 11/28/18 08:30 Home Medications: Home Meds Cholecalciferol (Vitamin D3) [Vitamin D3] 2,000 unit PO DAILY 12/25/19 [History] Pnv No.95/Ferrous Fum/Folic AC [ Vitamin Tablet] 1 each PO DAILY [History] Past Medical History - Past Health History Medical/Surgical History: Denies Medical/Surgical History HEENT History: Reports: None Cardiovascular History: Reports: High Cholesterol MICROBIOLOGY MANAGER History: Reports: , Other (See Below) Other OB/BYN History: demise at 32 weeks with 2nd , currently with EDC 01/01/20 - Past Surgical History HEENT Surgical History: Reports: Adenoidectomy, Tonsillectomy Cardiovascular Surgical History: Reports: Varicose Other Cardiovascular Surgeries/Procedures: left leg medial Musculoskeletal Surgical History: Reports: Other (See Below) Other Musculoskeletal Surgeries/Procedures:: ankle surgery 2002 Social & Family History - Family History Cardiac: Reports: High Cholesterol, Hypertension Musculoskeletal: Reports: Gout Endocrine/Metabolic: Reports: Diabetes, Type I, Diabetes, type II, Hypothyroidism Hematologic: Reports: None Immunologic: Reports: None Oncologic: Reports: Colon - Tobacco Use Smoking Status *Q: Never Smoker Second Hand Smoke Exposure: No - Caffeine Use Caffeine Use: Reports: Coffee, Soda - Recreational Drug Use Recreational Drug Use: No - Living Situation & Occupation Living situation: Reports: , with Spouse Occupation: Employed H&P Review of Systems - Review of Systems: Review Of Systems: See Below L&D Exam - Exam Exam: See Below - Vital Signs Vital Signs: Last Vital Signs Temp 36.4 C 12/26/19 04:31 Pulse 57 L 12/26/19 04:31 Resp 16 12/26/19 04:31 BP 134/66 12/26/19 04:31 Pulse Ox 97 12/26/19 04:31 Weight: 108.862 kg - Patient Data Lab Results Last 24 hrs: Laboratory Results - last 24 hr 12/25/19 12/25/19 Range/Units 07:32 07:32 WBC 10.31 H (3.98-10.04) K/mm3 RBC 4.24 (3.98-5.22) M/mm3 Hgb 12.5 (11.2-15.7) gm/dl Hct 38.5 (34.1-44.9) % MCV 90.8 (79.4-94.8) fl MCH 29.5 (25.6-32.2) pg MCHC 32.5 (32.2-35.5) g/dl RDW Std Deviation 44.0 (36.4-46.3) fL Plt Count 275 (182-369) K/mm3 MPV 10.7 (9.4-12.3) fl RPR Non-reactive (NONREACTIVE) Result Diagrams: 12/25/19 07:32 Problem List Initiated/Reviewed/Updated: Yes Orders Last 24hrs: Active Orders 24 hr Category Date Time Status Activity as Tolerated [RC] PER UNIT ROUTINE Care 12/25/19 17:23 Active Notify Provider [RC] ASDIRECTED Care 12/25/19 15:19 Inactive Vital Signs [RC] 03,09,15,21 Care 12/25/19 17:23 Active Regular Diet [DIET] Diet 12/25/19 Dinner Active Acetaminophen [Tylenol] Med 12/25/19 17:23 Active 650 mg PO Q4H PRN Benzocaine/Menthol [Dermoplast Pain Relief [place]] Med 12/25/19 17:23 Active See Dose Instructions TOP ASDIRECTED PRN Docusate Sodium [Colace] Med 12/25/19 17:23 Active 100 mg PO BID PRN Ibuprofen [Motrin] Med 12/25/19 17:23 Active 600 mg PO Q4H PRN witch Sumaya [Tucks] Med 12/25/19 17:23 Active 1 pad TOP ASDIRECTED PRN Assess Lochia [WOMSER] Per Unit Routine Oth 12/25/19 17:23 Ordered Assess Uterine Involution [WOMSER] Per Unit Routine Oth 12/25/19 17:23 Ordered Breast Pump [WOMSER] Per Unit Routine Oth 12/25/19 17:23 Ordered Heat Therapy [OM.PC] PRN Oth 12/25/19 17:23 Ordered Heat Therapy [OM.PC] PRN Oth 12/26/19 17:23 Ordered Ice Therapy [OM.PC] Per Unit Routine Oth 12/25/19 17:23 Ordered Medication Administration Instruction [OM.PC] Routine Ot 12/25/19 17:23 Ordered Perineal Care [OM.PC] Per Unit Routine Oth 12/25/19 17:23 Ordered Sitz Bath [OM.PC] Per Unit Routine Oth 12/25/19 17:23 Ordered Resuscitation Status Routine Resus Stat 12/25/19 07:18 Ordered Medication Orders Acetaminophen (Tylenol) 650 mg PO Q4H PRN PRN Reason: mild pain or fever Benzocaine/Menthol (Dermoplast Pain Relief [place]) 0 gm TOP ASDIRECTED PRN PRN Reason: Perineal Comfort Measure Docusate Sodium (Colace) 100 mg PO BID PRN PRN Reason: Constipation Ibuprofen (Motrin) 600 mg PO Q4H PRN PRN Reason: Mild pain or fever Last Admin: 12/26/19 00:25 Dose: 600 mg Witch Sumaya (Tucks) 1 pad TOP ASDIRECTED PRN PRN Reason: Perineal Comfort Measure Assessment/Plan Comment:: 1. 39 0/7 week intrauterine , admitted for elective induction of labor 2. Group B strep screen negative 3. Patient plans to breast-feed 4. Patient is up-to-date regarding her T dap, flu shot. She is rubella immune. 5. Patient desires epidural in labor and delivery 6. Patient has a history of stillborn 32-2/7 weeks with last . testing with this has been unremarkable. Plan: 1. Artificial rupture of membranes induction with possible Pitocin augmentation of labor 2. Epidural when necessary for labor analgesia. 3. Support breast-feeding decision 4. Anticipate . 5. CBC and RPR on admission per protocol.
--- NOTE | 2019-12-26 08:42 | PCM48HPAN ---
Post Anesthesia Note - EVALUATION WITHIN 48HRS OF ANESTHETIC Vital Signs in Normal Range: Yes Patient Participated in Evaluation: Yes Respiratory Function Stable: Yes Airway Patent: Yes Cardiovascular Function Stable: Yes Hydration Status Stable: Yes Pain Control Satisfactory: Yes Nausea and Vomiting Control Satisfactory: Yes Mental Status Recovered: Yes Vital Signs: Last Vital Signs Temp 36.7 C 12/26/19 07:33 Pulse 58 L 12/26/19 07:33 Resp 14 12/26/19 07:33 BP 129/87 12/26/19 07:33 Pulse Ox 99 12/26/19 07:33
--- NOTE | 2019-12-26 10:16 | PCM.PNPP ---
- General Info Date of Service: 12/26/19 Admission Dx/Problem (Free Text): 29-year-old female day 1 . She is doing well and has no concerns. Plans to continue . Functional Status: Reports: Pain Controlled, Tolerating Diet, Ambulating, Urinating - Review of Systems General: Reports: No Symptoms HEENT: Reports: No Symptoms Pulmonary: Reports: No Symptoms Cardiovascular: Reports: No Symptoms Gastrointestinal: Reports: No Symptoms Genitourinary: Reports: No Symptoms Musculoskeletal: Reports: No Symptoms Skin: Reports: No Symptoms Neurological: Reports: No Symptoms Psychiatric: Reports: No Symptoms - General Info Date of Service: 12/26/19 - Patient Data Vital Signs - Most Recent: Last Vital Signs Temp 98.1 F 12/26/19 07:33 Pulse 58 L 12/26/19 07:33 Resp 14 12/26/19 07:33 BP 129/87 12/26/19 07:33 Pulse Ox 99 12/26/19 07:33 Weight - Most Recent: 240 lb I&O - Last 24 Hours: Intake & Output 12/25/19 12/26/19 12/26/19 22:59 06:59 14:59 Intake Total 640 Balance 640 Lab Results - Last 24 Hours: Laboratory Results - last 24 hr 12/25/19 Range/Units 07:32 RPR Non-reactive (NONREACTIVE) Med Orders - Current: Current Medications Acetaminophen (Tylenol) 650 mg PO Q4H PRN PRN Reason: mild pain or fever Benzocaine/Menthol (Dermoplast Pain Relief [place]) 0 gm TOP ASDIRECTED PRN PRN Reason: Perineal Comfort Measure Docusate Sodium (Colace) 100 mg PO BID PRN PRN Reason: Constipation Ibuprofen (Motrin) 600 mg PO Q4H PRN PRN Reason: Mild pain or fever Last Admin: 12/26/19 06:29 Dose: 600 mg Witch Sumaya (Tucks) 1 pad TOP ASDIRECTED PRN PRN Reason: Perineal Comfort Measure Discontinued Medications Bupivacaine HCl (Sensorcaine-Mpf 0.25%) 10 ml .ROUTE .STK-MED ONE Stop: 12/25/19 00:01 Diphenhydramine HCl (Benadryl) 25 mg IVPUSH Q6H PRN PRN Reason: pruritis Ephedrine Sulfate (Ephedrine Sulfate) 5 mg IVPUSH ASDIRECTED PRN PRN Reason: Hypotension Fentanyl (Sublimaze) 100 mcg EPIDUR Q3H PRN PRN Reason: Pain Last Admin: 12/25/19 15:33 Dose: 100 mcg Fentanyl/Bupivacaine HCl (Fentanyl/Bupivacaine/Ns 2 Mcg-0.125% 100 Ml) 100 ml EPIDUR ASDIRECTED PRN PRN Reason: Pain Last Admin: 12/25/19 15:33 Dose: 100 ml Lactated Ringer's (Ringers, Lactated) 1,000 mls @ 100 mls/hr IV ASDIRECTED SHONDA Last Infusion: 12/25/19 15:36 Dose: 999 mls/hr Oxytocin/Lactated Ringer's (Pitocin In Lr 10 Units/1,000 Ml) 10 unit in 1,000 mls @ 12 mls/hr IV TITRATE SHONDA; Protocol Last Titration: 12/25/19 15:36 Dose: 0 munits/min, 0 mls/hr Oxytocin/Lactated Ringer's (Pitocin In Lr 10 Units/1,000 Ml) 10 unit in 1,000 mls @ 500 mls/hr IV .CONTINUOUS SHONDA Lidocaine HCl (Xylocaine 1%) 50 ml INJECT ONETIME PRN PRN Reason: Breakthrough Pain Sodium Chloride (Saline Flush) 10 ml FLUSH ASDIRECTED PRN PRN Reason: Keep Vein Open - Infant Interaction Infant Disposition, : [place] in Room with Family Infant Interaction: Other (see below) ( and grandfather interacting with in [place] ) Feeding: Breastfed ; Nursed Well Support Person: - Recovery Exam Fundal Tone: Firm Fundal Level: 2 Fingerbreadths Below Umbilicus Fundal Placement: Midline Lochia Amount: Small Lochia Color: Rubra/Red Perineum Description: Intact, Minimal Bruising/Swelling Episiotomy/Laceration: Approximated Bladder Status: Voiding Urinary Elimination: Voided - Exam General: Alert, Oriented HEENT: Pupils Equal, EOMI, Mucous Membr. Moist/[place] Lungs: Normal Respiratory Effort GI/Abdominal Exam: Soft, Non-Tender, No Distention Extremities: Normal Inspection, Normal Range of Motion Skin: Warm, Dry, Intact Wound/Incisions: Healing Well Neurological: No New Focal Deficit Psy/Mental Status: Alert, Normal Affect, Normal Mood - Problem List & Annotations (1) Encounter for induction of labor SNOMED Code(s): 014481903 Code(s): Z34.90 - ENCNTR FOR SUPRVSN OF NORMAL , UNSP, UNSP TRIMESTER Status: Acute Current Visit: Yes (2) FTND (full term normal delivery) SNOMED Code(s): 68241543 Code(s): O80 - ENCOUNTER FOR FULL-TERM UNCOMPLICATED DELIVERY Status: Acute Current Visit: Yes - Problem List Review Problem List Initiated/Reviewed/Updated: Yes - Assessment Assessment:: 12/26/2019 1027 Patient is afebrile, doing well, and tolerating diet. Patient plans to continue and notes that it is going well. Vaginal/uterine bleeding has been minimal and pain is well controlled. - Plan Plan:: 1. 39 0/7 week intrauterine , admitted for elective induction of labor 2. Group B strep screen negative 3. Patient plans to breast-feed 4. Patient is up-to-date regarding her T dap, flu shot. She is rubella immune. 5. Patient desires epidural in labor and delivery 6. Patient has a history of stillborn 32-2/7 weeks with last . testing with this has been unremarkable. Plan: 1. Artificial rupture of membranes induction with possible Pitocin augmentation of labor 2. Epidural when necessary for labor analgesia. 3. Support breast-feeding decision 4. Anticipate . 5. CBC and RPR on admission per protocol. 12/26/2019 Plan to discharge to home tomorrow. Discussed adequate calcium intake as well as continuing vitamins. Encouraged patient to continue to watch for signs of infection, blood clots, and abnormal uterine/vaginal bleeding. Patient will follow up in clinic in two weeks.
[2019-12-27] MEDS: Ibuprofen 600 MG Tab PO PRN (01:45)
--- NOTE | 2019-12-27 07:06 | PCM.DCSUM1 ---
Discharge Summary - Hospital Course Diagnosis: Stroke: No - Discharge Data Discharge Date: 12/27/19 Discharge Disposition: Home, Self-Care 01 Condition: Good - Referral to Home Health Primary Care Physician: Horacio Adams MD - Patient Summary/Data Hospital Course: Clementine is a 29-year-old multigravida white female who was admitted this a.m. for induction of labor. She underwent artificial rupture membranes and was later augmented somewhat with Pitocin. She progressed rapidly to complete cervical dilation. She had an epidural for labor analgesia. At 1617 hrs. she delivered a viable, pool, male infant with Apgars of 8 and 9, a length of 21.0 inches, a weight of 4130 g per menses 9 pounds 1.7 ounces) she delivered in a direct occiput anterior position. The baby was completely delivered and placed on mom's abdomen. Umbilical cord was allowed to pulsate for approximately 2 minutes and then was clamped 2 and cut by the baby's father Maximilian. Cord blood was obtained. The umbilical cord had 3 vessels. The placenta delivered in a Warren's dictation, appeared intact and complete and was discarded per patient desire. The baby was dried and nose mouth were bulb suctioned. Pitocin was increased 500 mL per hour. The IV however was nonfunctional and was discontinued. Attention was paid to the contraction the uterus and to monitor bleeding which was minimal. Patient had a's small second-degree laceration which was repaired with 2 figure- of-eight sutures of 3-0 Monocryl. Estimated blood loss was 200 mL. Condition: Good. - Patient Instructions Diet: Usual Diet as Tolerated Activity: No Strenuous Activities Driving: May Drive Today Showering/Bathing: May Shower Wound/Incision Care: Keep Operative Site/Wound Site Clean and Dry Notify Provider of: Fever, Increased Pain, Swelling and Redness, Drainage, Nausea and/or Vomiting - Discharge Plan *PRESCRIPTION DRUG MONITORING PROGRAM REVIEWED*: No *COPY OF PRESCRIPTION DRUG MONITORING REPORT IN PATIENT JR: No Home Medications: Home Meds Cholecalciferol (Vitamin D3) [Vitamin D3] 2,000 unit PO DAILY 12/25/19 [History] Pnv No.95/Ferrous Fum/Folic AC [ Vitamin Tablet] 1 each PO DAILY [History] Referrals: Horacio Adams MD [Primary Care Provider] - (2 weeks) - Discharge Summary/Plan Comment DC Time >30 min.: No - General Info Date of Service: 12/27/19 Functional Status: Reports: Pain Controlled - Review of Systems General: Reports: No Symptoms HEENT: Reports: No Symptoms Pulmonary: Reports: No Symptoms Cardiovascular: Reports: No Symptoms Gastrointestinal: Reports: No Symptoms Genitourinary: Reports: No Symptoms Musculoskeletal: Reports: No Symptoms Skin: Reports: No Symptoms Neurological: Reports: No Symptoms Psychiatric: Reports: No Symptoms - Patient Data Vitals - Most Recent: Last Vital Signs Temp 36.6 C 12/27/19 02:44 Pulse 69 12/27/19 02:44 Resp 18 12/27/19 02:44 BP 108/77 12/27/19 02:44 Pulse Ox 98 12/27/19 02:44 Weight - Most Recent: 108.862 kg I&O - Last 24 hours: Intake & Output 12/26/19 12/27/19 12/27/19 22:59 06:59 14:59 Intake Total 480 Balance 480 Med Orders - Current: Current Medications Acetaminophen (Tylenol) 650 mg PO Q4H PRN PRN Reason: mild pain or fever Benzocaine/Menthol (Dermoplast Pain Relief [place]) 0 gm TOP ASDIRECTED PRN PRN Reason: Perineal Comfort Measure Docusate Sodium (Colace) 100 mg PO BID PRN PRN Reason: Constipation Ibuprofen (Motrin) 600 mg PO Q4H PRN PRN Reason: Mild pain or fever Last Admin: 12/27/19 01:45 Dose: 600 mg Witch Sumaya (Tucks) 1 pad TOP ASDIRECTED PRN PRN Reason: Perineal Comfort Measure Discontinued Medications Bupivacaine HCl (Sensorcaine-Mpf 0.25%) 10 ml .ROUTE .STK-MED ONE Stop: 12/25/19 00:01 Diphenhydramine HCl (Benadryl) 25 mg IVPUSH Q6H PRN PRN Reason: pruritis Ephedrine Sulfate (Ephedrine Sulfate) 5 mg IVPUSH ASDIRECTED PRN PRN Reason: Hypotension Fentanyl (Sublimaze) 100 mcg EPIDUR Q3H PRN PRN Reason: Pain Last Admin: 12/25/19 15:33 Dose: 100 mcg Fentanyl/Bupivacaine HCl (Fentanyl/Bupivacaine/Ns 2 Mcg-0.125% 100 Ml) 100 ml EPIDUR ASDIRECTED PRN PRN Reason: Pain Last Admin: 12/25/19 15:33 Dose: 100 ml Lactated Ringer's (Ringers, Lactated) 1,000 mls @ 100 mls/hr IV ASDIRECTED SHONDA Last Infusion: 12/25/19 15:36 Dose: 999 mls/hr Oxytocin/Lactated Ringer's (Pitocin In Lr 10 Units/1,000 Ml) 10 unit in 1,000 mls @ 12 mls/hr IV TITRATE SHONDA; Protocol Last Titration: 12/25/19 15:36 Dose: 0 munits/min, 0 mls/hr Oxytocin/Lactated Ringer's (Pitocin In Lr 10 Units/1,000 Ml) 10 unit in 1,000 mls @ 500 mls/hr IV .CONTINUOUS SHONDA Lidocaine HCl (Xylocaine 1%) 50 ml INJECT ONETIME PRN PRN Reason: Breakthrough Pain Sodium Chloride (Saline Flush) 10 ml FLUSH ASDIRECTED PRN PRN Reason: Keep Vein Open - Exam General: Reports: Alert, Oriented HEENT: Reports: Pupils Equal, Pupils Reactive, EOMI, Mucous Membr. Moist/[place] Neck: Reports: Supple Lungs: Reports: Clear to Auscultation, Normal Respiratory Effort Cardiovascular: Reports: Regular Rate, Regular Rhythm GI/Abdominal Exam: Normal Bowel Sounds, Soft, Non-Tender, No Organomegaly, No Distention, No Abnormal Bruit, No Mass, Pelvis Stable Rectal (Female) Exam: Normal Exam Back Exam: Reports: Normal Inspection, Full Range of Motion Extremities: Normal Inspection, Normal Range of Motion, Non-Tender, No Pedal Edema, Normal Capillary Refill Skin: Reports: Warm, Dry, Intact Wound/Incisions: Reports: Healing Well Neurological: Reports: No New Focal Deficit Psy/Mental Status: Reports: Alert, Normal Affect, Normal Mood
== END 2019-12-27 12:15 | disposition home or self-care (01) | DRG 807 ==
LOC: JD.OB 06:38 → OBSVTOIN 16:17 → JD.OB 16:17
PROVIDERS: ADMIT Obstetrics & Gynecology; ATTEND Obstetrics & Gynecology
PROC: 10E0XZZ Delivery of Products of Conception, External Approach (ICD-10-PCS; principal; 2019-12-26)
PROC: 10907ZC Drainage of Amniotic Fluid, Therapeutic from Products of Conception, Via Natural or Artificial Opening (ICD-10-PCS; 2019-12-26)
PROC: 0KQM0ZZ Repair Perineum Muscle, Open Approach (ICD-10-PCS; 2019-12-26)
PROC: 3E0R3BZ Introduction of Anesthetic Agent into Spinal Canal, Percutaneous Approach (ICD-10-PCS; 2019-12-26)
DX: O70.1 Second degree perineal laceration during delivery (principal); Z37.0 Single live birth; Z3A.39 39 weeks gestation of pregnancy; Z79.899 Other long term (current) drug therapy; Z90.89 Acquired absence of other organs
CPT/HCPCS: 01967; 36415; 59025; 59409; 85027; 86592; A9270-GY; J2590; J3010; J3490; J7120